=== PATIENT | female | born 1990 | race Caucasian/White ===

== ENCOUNTER 2019-04-25 18:01 | Emergency (ER) | payer BC ==
[~2019-04-25] VITALS: Ht 157.4 cm; Wt 76.2 kg
[2019-04-25 19:04] LABS: BILIRUBIN NEGATIVE (NEGATIVE); CLARITY CLEAR (CLEAR); COLOR YELLOW (YELLOW); GLUCOSE NEGATIVE (NEGATIVE); KETONE NEGATIVE (NEGATIVE)
[2019-04-25 19:05] LABS: BLOOD 1+ (NEGATIVE); LEUKO ESTERASE TRACE (NEGATIVE); NITRITE NEGATIVE (NEGATIVE); PH 7.5 (5.0-9.0); UROBILINOGEN 0.2 E.U./dl (0.2-1.0)
[2019-04-25 19:06] LABS: BACTERIA 1+; MUCOUS 1+; WBC 0-2 wbc/hpf (0-5)
[2019-04-25] MEDS ORDERED: KEFLEX250 MG PO (21:51)
== END 2019-04-25 21:57 | disposition home or self-care (01) ==
LOC: ED 18:01
PROVIDERS: Nurse Practitioner Family
DX: O20.9 Hemorrhage in early pregnancy, unspecified (principal); O23.91 Unspecified genitourinary tract infection in pregnancy, first trimester; Z3A.01 Less than 8 weeks gestation of pregnancy

== ENCOUNTER → 2019-04-28 | Outpatient (CLI) | payer BC ==
[~2019-04-28] MED LIST: KEFLEX250 MG PO
== END | disposition home or self-care (01) ==
LOC: LAB 11:26
DX: R10.9 Unspecified abdominal pain (principal)

== ENCOUNTER 2022-12-16 10:21 | Emergency (ER) | payer BC ==
[~2022-12-16] VITALS: Ht 157.4 cm; Wt 86.2 kg
[2022-12-16] MEDS ORDERED: ZOLOFT25 MG PO (10:35)
[2022-12-16] MEDS ORDERED: PREDNISONE50 MG PO (10:55)
[2022-12-16] MEDS ORDERED: CYCLOBENZAPRINE5 M3 PO (10:55)
== END 2022-12-16 11:03 | disposition home or self-care (01) ==
LOC: ED 10:21
DX: M54.42 Lumbago with sciatica, left side (principal); M79.605 Pain in left leg

== ENCOUNTER → 2023-01-16 | Outpatient (CLI) | payer BC ==
[~2023-01-16] MED LIST changes: +CYCLOBENZAPRINE5 M3 PO; +PREDNISONE50 MG PO; +ZOLOFT25 MG PO
== END | disposition home or self-care (01) ==
LOC: CARD 10:02
PROVIDERS: ATTEND Nurse Practitioner
DX: Z01.818 Encounter for other preprocedural examination (principal)

== ENCOUNTER 2023-04-30 16:01 | Emergency (ER) | payer BC ==
[2023-04-30] VITALS (9 sets, daily range): BP systolic 109–128; BP diastolic 65–78
[~2023-04-30] VITALS: Wt 73.0 kg
[2023-04-30 16:42] LABS: MEAN CELL VOLUME 87.3 fl (81.0-99.0); MEAN CORPUSCULAR HGB 27.8 pg (27.0-31.0); MEAN CORPUSCULAR HGB CONC 31.9 g/dl (33.0-37.0); MEAN PLATELET VOLUME 9.9 fl (9.6-12.3); PLATELET COUNT AUTOMATED 100 10*3/uL (130-400); RED BLOOD COUNT 2.12 10*6/uL (4.10-5.10); RED CELL DISTRI WIDTH 18.7 % (0-14.5); WHITE BLOOD COUNT 2.1 10*3/uL (4.8-10.8)
[2023-04-30 16:47] LABS: HEMATOCRIT 18.5 % (37.0-47.0); MANUAL DIFF REFLEX YES
[2023-04-30 17:04] LABS: ALKALINE PHOSPHATASE 250 U/L (46-116); BUN 10 mg/dl (9-23); CHLORIDE 105 mmol/L (98-107); POTASSIUM 3.3 mmol/L (3.4-5.1); SGPT/ALT 75 U/L (5-49); TOTAL PROTEIN 6.3 gm/dL (6.0-8.0)
[2023-04-30 17:45] LABS: PLATELET SUFFICIENCY LOW (NORMAL); TOTAL CELLS COUNTED 100 #CELLS
[2023-04-30 17:46] LABS: OVALOCYTES FEW; TOXIC GRANULATION MODERATE
[2023-04-30 18:10] LABS: ATYPICAL LYMPHS 1 % (0-0); BASOPHILS 2 % (0-1)
[2023-04-30 18:11] LABS: POLYCHROMASIA SLIGHT
== END 2023-04-30 20:55 | disposition home or self-care (01) ==
LOC: ED 16:01
PROVIDERS: Nurse Practitioner Family
DX: D64.9 Anemia, unspecified (principal)

== ENCOUNTER → 2023-06-08 | Outpatient (CLI) | payer BC ==
[2023-06-08 17:18] LABS: HEMATOCRIT 26.3 % (37.0-47.0); MEAN CELL VOLUME 91.6 fl (81.0-99.0); MEAN CORPUSCULAR HGB 28.6 pg (27.0-31.0); MEAN CORPUSCULAR HGB CONC 31.2 g/dl (33.0-37.0); MEAN PLATELET VOLUME 10.7 fl (9.6-12.3); NUCLEATED RED BLOOD CELL 1.8 % (0.0-0.0); PLATELET COUNT AUTOMATED 45 10*3/uL (130-400); RED BLOOD COUNT 2.87 10*6/uL (4.10-5.10); RED CELL DISTRI WIDTH 18.6 % (0-14.5)
[2023-06-08 17:59] LABS: MANUAL DIFF REFLEX YES
[2023-06-08 18:00] LABS: WHITE BLOOD COUNT 1.7 10*3/uL (4.8-10.8)
[2023-06-08 18:22] LABS: PLATELET SUFFICIENCY LOW (NORMAL); TOTAL CELLS COUNTED 100 #CELLS
[2023-06-08 18:23] LABS: TOXIC GRANULATION MODERATE
[2023-06-08 18:24] LABS: OVALOCYTES FEW
== END | disposition home or self-care (01) ==
LOC: LAB 17:04
PROVIDERS: ATTEND Physician Assistant
DX: D64.9 Anemia, unspecified (principal)

== ENCOUNTER 2023-10-06 20:54 | Inpatient (IN) | payer BC ==
[~2023-10-06] VITALS: Ht 154.9 cm; Wt 76.8 kg
[2023-10-06 20:54] VITALS: BP 102/62
[2023-10-06] MEDS ORDERED: SODIUM CHLORIDE 0.9% 1,000 ML IV ONE (21:00)
[2023-10-06 21:21] LABS: MEAN CELL VOLUME 78.6 fl (81.0-99.0); MEAN CORPUSCULAR HGB 25.6 pg (27.0-31.0); MEAN CORPUSCULAR HGB CONC 32.5 g/dl (33.0-37.0); MEAN PLATELET VOLUME 10.1 fl (9.6-12.3); PLATELET COUNT AUTOMATED 127 10*3/uL (130-400); RED BLOOD COUNT 4.07 10*6/uL (4.10-5.10); RED CELL DISTRI WIDTH 18.3 % (0-14.5)
[2023-10-06 21:23] LABS: MANUAL DIFF REFLEX YES; WHITE BLOOD COUNT 0.9 10*3/uL (4.8-10.8)
[2023-10-06 21:38] LABS: POTASSIUM 4.1 mmol/L (3.4-5.1); TOTAL PROTEIN 5.8 gm/dL (6.0-8.0)
[2023-10-06 22:18] LABS: TOTAL CELLS COUNTED 100 #CELLS
[2023-10-06 22:21] LABS: BURR CELLS FEW; PLATELET SUFFICIENCY LOW (NORMAL); TOXIC GRANULATION MODERATE
[2023-10-06] MEDS ORDERED: Vancomycin Hydrochloride 250 ML IV ONE (23:10)
[2023-10-06] MEDS ORDERED: SODIUM CHLORIDE 0.9% 1,000 ML IV SCH (23:10)
[2023-10-06] MEDS ORDERED: Piperacillin Sodium/Tazobact 50 ML IV ONE (23:15)
[2023-10-07] VITALS (17 sets, daily range): BP systolic 80–180; BP diastolic 00–108
[2023-10-07] MEDS ORDERED: Ondansetron Hydrochloride 4 MG/2 ML VIAL IV PRN (01:45)
[2023-10-07] MEDS ORDERED: MORPHINE Sulfate 2 MG/ML SYR IV PRN (01:45)
[2023-10-07] MEDS ORDERED: IOHEXOL 300 MG/ML 100 ML VIAL IV ONE (02:05)
[2023-10-07 02:13] LABS: POTASSIUM 4.9 mmol/L (3.4-5.1); TOTAL PROTEIN 5.3 gm/dL (6.0-8.0)
[2023-10-07] MEDS ORDERED: MAGNESIUM SULFATE 50 ML IV ONE (02:20)
[2023-10-07] MEDS ORDERED: Iodixanol 320 100 ML VIAL IV ONE (02:30)
[2023-10-07 04:02] LABS: HEMATOCRIT 28.3 % (37.0-47.0); MEAN CELL VOLUME 79.1 fl (81.0-99.0); MEAN CORPUSCULAR HGB 25.4 pg (27.0-31.0); MEAN CORPUSCULAR HGB CONC 32.2 g/dl (33.0-37.0); RED BLOOD COUNT 3.58 10*6/uL (4.10-5.10)
[2023-10-07 04:30] LABS: MANUAL DIFF REFLEX YES
[2023-10-07 04:31] LABS: WHITE BLOOD COUNT 0.5 10*3/uL (4.8-10.8)
[2023-10-07 04:44] LABS: ATYPICAL LYMPHS 6 % (0-0); PLATELET SUFFICIENCY LOW (NORMAL); TOTAL CELLS COUNTED 100 #CELLS
[2023-10-07 04:45] LABS: BURR CELLS FEW
[2023-10-07 04:46] LABS: PLATELET COUNT AUTOMATED 79 10*3/uL (130-400)
[2023-10-07] MEDS ORDERED: LORazepam 2 MG/ML VIAL ONE (05:49)
[2023-10-07] MEDS ORDERED: EPINEPHrine Hydrochloride 1 MG/ML AMP ONE (06:02)
[2023-10-07] MEDS ORDERED: PROPOFOL 100 ML IV ONE (06:05)
[2023-10-07 06:23] LABS: POTASSIUM 4.9 mmol/L (3.4-5.1)
[2023-10-07] MEDS ORDERED: NOREPINEPHRINE BITARTRATE/D5W 250 ML IV ONE (06:24)
[2023-10-07] MEDS ORDERED: SODIUM CHLORIDE 0.9% 1,000 ML IV ONE ×2 (07:00→07:12)
[2023-10-07] MEDS ORDERED: fentaNYL CITRATE 1,000 MCG in SODIUM CHLORIDE 0.9% 230 ML IV SCH (07:35)
[2023-10-07] MEDS ORDERED: SODIUM CHLORIDE 0.9% IV SCH (07:35)
[2023-10-07] MEDS ORDERED: KETAMINE HYDROCHLORIDE IV SCH (07:35)
[2023-10-07] MEDS ORDERED: Piperacillin Sodium/Tazobact 2.25 GM in SODIUM CHLORIDE 0.9% 50 ML IV SCH (08:00)
[2023-10-07 08:16] LABS: ABG BASE EXCESS -7.8 mmol/L (-2.0-2.0); ARTERIAL BLOOD GAS PH 7.342 (7.35-7.45)
[2023-10-07] MEDS ORDERED: fentaNYL CITRATE/PF 50 MCG/ML SYRINGE ONE (08:23)
[2023-10-07] MEDS ORDERED: HEPARIN SODIUM 250 ML IV SCH (08:40)
[2023-10-07] MEDS ORDERED: Heparin Sodium/Sodium Chlori 1,000 UNITS/500 ML BAG IV SCH (08:45)
[2023-10-07 08:52] LABS: POTASSIUM 4.3 mmol/L (3.4-5.1)
[2023-10-07] MEDS ORDERED: Water, Sterile 10 ML VIAL IV PRN (09:30)
[2023-10-07] MEDS ORDERED: Hydrocortisone Sodium Succin 100 MG/2 ML VIAL IV SCH (09:30)
[2023-10-07] MEDS ORDERED: HEPARIN SODIUM 5,000 UNIT/ML VIAL SC SCH (10:00)
[2023-10-07] MEDS ORDERED: Hydrocortisone Sodium Succin 100 MG IV SCH (14:00)
[2023-10-07] MEDS ORDERED: Vancomycin Hydrochloride 1,000 MG in SODIUM CHLORIDE 0.9% 250 ML IV SCH (22:00)
[2023-10-08] MEDS ORDERED: Pantoprazole Sodium 40 MG VIAL IV SCH (06:00)
== END 2023-10-07 10:13 | disposition short-term general hospital (02) | DRG 871 ==
LOC: ED 20:54 → EDHOLD 10-07 01:16
PROVIDERS: Emergency Medicine; Internal Medicine; Student in an Organized Health Care Education/Training Program; ADMIT Internal Medicine; ATTEND Internal Medicine
PROC: 5A12012 Performance of Cardiac Output, Single, Manual (ICD-10-PCS; principal; 2023-10-07)
PROC: 5A1935Z Respiratory Ventilation, Less than 24 Consecutive Hours (ICD-10-PCS; 2023-10-07)
PROC: 0BH17EZ Insertion of Endotracheal Airway into Trachea, Via Natural or Artificial Opening (ICD-10-PCS; 2023-10-07)
DX: A41.9 Sepsis, unspecified organism (principal); E43 Unspecified severe protein-calorie malnutrition; I46.9 Cardiac arrest, cause unspecified; J96.01 Acute respiratory failure with hypoxia; N17.0 Acute kidney failure with tubular necrosis; D61.818 Other pancytopenia; E87.1 Hypo-osmolality and hyponatremia; E87.20 Acidosis, unspecified; C41.9 Malignant neoplasm of bone and articular cartilage, unspecified; K56.601 Complete intestinal obstruction, unspecified as to cause; R65.20 Severe sepsis without septic shock; F32.A Depression, unspecified; G90.8 Other disorders of autonomic nervous system; R74.01 Elevation of levels of liver transaminase levels; E83.39 Other disorders of phosphorus metabolism; E83.42 Hypomagnesemia; E87.8 Other disorders of electrolyte and fluid balance, not elsewhere classified; E80.6 Other disorders of bilirubin metabolism; R73.9 Hyperglycemia, unspecified; I95.9 Hypotension, unspecified; Z83.3 Family history of diabetes mellitus; Z83.6 Family history of other diseases of the respiratory system; Z68.32 Body mass index [BMI] 32.0-32.9, adult